=== PATIENT | male | born 1995 | race Hispanic/Latino ===

== ENCOUNTER 2022-12-25 21:20 | Emergency (ER) | payer SELFPAY ==
[2022-12-26 00:50] LABS: #Basophils 0.1 thou/uL (0.0-0.2); #Eosinphils 0.2 thou/uL (0.0-0.7); #Monocytes 0.8 thou/uL (0.11-0.59); %Basophils 0.4 % (0.0-1.0); %Eosinophils 1.9 % (0.0-10.0); %Lymphocytes 32.2 % (21.0-51.0); %Monocytes 6.8 % (0.0-10.0); %Neutrophils 58.5 % (42.0-75.0); Hemoglobin 15.5 g/dL (14.0-18.0); Mean Corpuscular HGB CONC 35.5 g/dL (32.0-36.0); Mean Corpuscular Volume 84.5 fl (78.0-98.0); Mean Platelet Volume 10.2 fL (7.4-10.4); Platelet Count 233 10x3/uL (130-400); RBC Distribution Width 12.6 % (11.5-14.5); Red Blood Cell (RBC) Count 5.17 mill/uL (4.70-6.10)
[2022-12-26 01:31] LABS: ALT (SGPT) 36 U/L (8-55); AST (SGOT) 21 U/L (5-34); Albumin 4.3 g/dL (3.5-5.0); Alkaline Phosphatase 59 U/L (40-110); Anion Gap 16 mmol/L (10-20); BUN (Urea Nitrogen) 13 mg/dL (8.9-20.6); Bilirubin, Total 0.6 mg/dL (0.2-1.2); CK (CPK) 36 U/L (30-200); Calc. Creatinine Clearance 0 mL/min (70-130); Calcium 9.7 mg/dL (7.8-10.44); Carbon Dioxide 20 mmol/L (22-29); Chloride 104 mmol/L (98-107); Estimated GFR 122; Globulin 3.4 g/dL (2.4-3.5); Glucose 99 mg/dL (70-105); Lipase 10 U/L (8-78); Potassium 4.1 mmol/L (3.5-5.1); Protein, Total 7.7 g/dL (6.0-8.3); Sodium 136 mmol/L (136-145)
== END 2022-12-26 01:54 | disposition home or self-care (01) ==
LOC: ERS 21:20
DX: R53.1 Weakness (principal); D72.829 Elevated white blood cell count, unspecified
CPT/HCPCS: 36415; 71045; 80053; 82550; 83690; 84484; 85025; 93005

== ENCOUNTER 2023-01-16 10:05 | Day surgery (SDC) | payer BC ==
[2023-01-12 13:21] VITALS: BMI 40.6
[2023-01-16] MEDS ORDERED: Acetaminophen 500 MG TAB ONE (11:04)
[2023-01-16] MEDS ORDERED: Midazolam HCl 2 mg/2 ml Vial ONE ×2 (11:39→11:55)
[2023-01-16] MEDS ORDERED: Fentanyl 250 MCG/5 ML VIAL ONE (11:39)
[2023-01-16] MEDS ORDERED: SUGAMMADEX SODIUM 200 MG/2 ML VIAL ONE (11:40)
[2023-01-16] MEDS ORDERED: EPINEPHrine 1 MG/ML AMP ONE (11:41)
[2023-01-16] MEDS ORDERED: Bupivacaine 0.25% HCL 30 ML VIAL ONE (11:41)
[2023-01-16] MEDS ORDERED: cefOXitin 2 GM VIAL ONE (11:53)
[2023-01-16] MEDS ORDERED: Sodium Chloride 0.9% 100 ML ONE (11:53)
[2023-01-16] MEDS ORDERED: Indocyanine Green 25 MG/10 ML VIAL ONE (12:04)
[2023-01-16] MEDS ORDERED: Rocuronium Bromide 10 MG/ML (10ML VIAL) ONE (12:06)
[2023-01-16] MEDS ORDERED: NEOSTIGMINE 3 MG/3 ML SYR 3 MG/3 ML SYRINGE ONE (12:06)
[2023-01-16] MEDS ORDERED: Lidocaine 1% PF 5 ML VIAL ONE (12:06)
[2023-01-16] MEDS ORDERED: Dexamethasone 20 MG/5 ML VIAL ONE (12:06)
[2023-01-16] MEDS ORDERED: PROPOFOL 200 MG/20 ML VIAL ONE (12:06)
[2023-01-16] MEDS ORDERED: Glycopyrrolate 0.2 MG/ML 5 ML SYRINGE ONE (12:06)
[2023-01-16] MEDS ORDERED: Ondansetron PF 4 MG/2 ML Vial ONE (12:06)
[2023-01-16] MEDS ORDERED: HYDROmorphone 2 MG/ML VIAL SLOW IVP PRN (12:46)
[2023-01-16] MEDS ORDERED: Ondansetron HCl/PF 4 MG/2 ML Vial IVP PRN (12:46)
[2023-01-16] MEDS ORDERED: Promethazine HCl 25 MG/ML VIAL IM PRN (12:46)
[2023-01-16] MEDS ORDERED: HYDROmorphone 0.5 MG/0.5 ML SYRINGE ONE (13:07)
[2023-01-16] MEDS ORDERED: Labetalol HCl 100 MG/20 ML VIAL ONE (13:16)
[2023-01-16] MEDS ORDERED: fentaNYL 50 mcg/mL 1 mL Vial ONE ×3 (13:17→14:25)
[2023-01-16] MEDS ORDERED: hydrALAZINE 20 MG/ML VIAL ONE (13:22)
[2023-01-16] MEDS ORDERED: HYDROcodone/Acetaminophen 5/325 mg Tablet ONE (15:37)
== END 2023-01-16 17:19 | disposition home or self-care (01) ==
LOC: SDC 10:05
PROVIDERS: ATTEND Surgery
PROC: 0FT44ZZ Resection of Gallbladder, Percutaneous Endoscopic Approach (ICD-10-PCS; principal; 2023-01-16)
DX: K80.10 Calculus of gallbladder with chronic cholecystitis without obstruction (principal)
CPT/HCPCS: 88304; C1776; J0171; J0360; J0694; J1100; J1170; J2250; J2405; J2704; J3010; J3490; S0020

== ENCOUNTER 2023-01-22 17:12 | Emergency (ER) | payer BC ==
[2023-01-22 18:14] LABS: #Basophils 0.1 thou/uL (0.0-0.2); #Eosinphils 0.2 thou/uL (0.0-0.7); #Neutrophils 10.2 thou/uL (1.40-6.50); %Basophils 0.3 % (0.0-1.0); %Eosinophils 1.3 % (0.0-10.0); %Monocytes 6.7 % (0.0-10.0); %Neutrophils 67.5 % (42.0-75.0); Hemoglobin 16.6 g/dL (14.0-18.0); Mean Corpuscular HGB CONC 34.4 g/dL (32.0-36.0); Mean Corpuscular Hemoglobin 29.6 pg (27.0-31.0); Mean Corpuscular Volume 86.1 fl (78.0-98.0); Mean Platelet Volume 10.1 fL (7.4-10.4); Platelet Count 304 10x3/uL (130-400); RBC Distribution Width 12.5 % (11.5-14.5)
[2023-01-22 18:42] LABS: ALT (SGPT) 55 U/L (8-55); AST (SGOT) 19 U/L (5-34); Albumin 4.8 g/dL (3.5-5.0); Alkaline Phosphatase 86 U/L (40-110); Anion Gap 16 mmol/L (10-20); BUN (Urea Nitrogen) 14 mg/dL (8.9-20.6); Bilirubin, Total 0.5 mg/dL (0.2-1.2); Calc. Creatinine Clearance 0 mL/min (70-130); Calcium 10.7 mg/dL (7.8-10.44); Carbon Dioxide 25 mmol/L (22-29); Chloride 103 mmol/L (98-107); Estimated GFR 117; Globulin 3.6 g/dL (2.4-3.5); Glucose 106 mg/dL (70-105); Lipase 12 U/L (8-78); Potassium 4.6 mmol/L (3.5-5.1); Protein, Total 8.4 g/dL (6.0-8.3); Sodium 139 mmol/L (136-145)
[2023-01-22 19:10] LABS: Bacteria/HPF None Seen HPF (None Seen); Bilirubin Negative (Negative); Blood, Urine Negative (Negative); CAUTI Indications for Culture Dysuria,urgency,freq; Clarity Clear (Clear); Glucose, Urine (Dipstick) Normal (Negative); Ketone, Urine Negative (Negative); Leukocyte Negative Leu/uL (Negative); Nitrite Negative (Negative); Protein, Urine (Dipstick) Negative (Neg-Trace); RBC/HPF 0-3 HPF (0-3); Specific Gravity, Urine 1.025 (1.002-1.036); Squamous Epithelial None Seen HPF (0-3); Urobilinogen Normal mg/dL (Less than 2); WBC/HPF 0-3 HPF (0-3)
[2023-01-22 19:12] LABS: Urine Culture Reflex No No
== END 2023-01-22 20:35 | disposition home or self-care (01) ==
LOC: ERS 17:12
DX: M54.14 Radiculopathy, thoracic region (principal)
CPT/HCPCS: 36415; 71045; 80053; 81001; 83690; 85025; 93005

== ENCOUNTER 2023-02-06 01:23 | Emergency (ER) | payer BC ==
[2023-02-06] MEDS ORDERED: Ketorolac Tromethamine 30 MG/ML VIAL ONE (01:42)
[2023-02-06 02:10] LABS: #Basophils 0.1 thou/uL (0.0-0.2); #Eosinphils 0.4 thou/uL (0.0-0.7); #Neutrophils 8.1 thou/uL (1.40-6.50); %Basophils 0.5 % (0.0-1.0); %Lymphocytes 29.7 % (21.0-51.0); %Monocytes 6.9 % (0.0-10.0); %Neutrophils 59.6 % (42.0-75.0); Hematocrit 42.8 % (42.0-52.0); Mean Corpuscular Hemoglobin 29.6 pg (27.0-31.0); Mean Corpuscular Volume 84.6 fl (78.0-98.0); Platelet Count 258 10x3/uL (130-400); RBC Distribution Width 12.5 % (11.5-14.5); Red Blood Cell (RBC) Count 5.06 mill/uL (4.70-6.10); White Blood Cell (WBC) Count 13.7 10x3/uL (4.8-10.8)
[2023-02-06 02:38] LABS: ALT (SGPT) 37 U/L (8-55); AST (SGOT) 16 U/L (5-34); Albumin 4.4 g/dL (3.5-5.0); Alkaline Phosphatase 72 U/L (40-110); Anion Gap 14 mmol/L (10-20); BUN (Urea Nitrogen) 13 mg/dL (8.9-20.6); Bilirubin, Total 0.4 mg/dL (0.2-1.2); Calc. Creatinine Clearance 0 mL/min (70-130); Calcium 9.6 mg/dL (7.8-10.44); Carbon Dioxide 24 mmol/L (22-29); Chloride 105 mmol/L (98-107); Estimated GFR 117; Glucose 129 mg/dL (70-105); Potassium 3.6 mmol/L (3.5-5.1); Protein, Total 7.4 g/dL (6.0-8.3); Sodium 139 mmol/L (136-145)
[2023-02-06] MEDS ORDERED: Iopamidol-370 76% 500 ML MDV (1 ML CHARGE) ONE (10:48)
== END 2023-02-06 05:27 | disposition home or self-care (01) ==
LOC: ERS 01:23
DX: M54.9 Dorsalgia, unspecified (principal)
CPT/HCPCS: 71045; 71275; 80053; 84484; 85025; 93005; 96374; J1885; Q9967